=== PATIENT | male | born 1945 | race Caucasian/White ===

== ENCOUNTER 2018-11-03 23:18 | Emergency (ER) | payer MEDICARE, OTHER ==
--- NOTE | 2018-11-03 23:28 | ED Physician Documentation ---
Fall - HISTORIAN Historian: patient - HPI Stated Complaint: fall Chief Complaint: Fall Onset: just prior to arrival Where: home Context: slipped (on ice ) Associated Symptoms:: no loss of consciousness Location of Pain/Injury: upper back, hip, other (rib pain ) Injury to Right Extremity: none Injury to Left Extremity: hip, ankle Further Comments: yes (He states he slipped on the ice and he hit his head on the left eyebrow, and his left upper ribs, upper back, left hip and ankle all hurt. He is not sure he can bear weight on his left leg. He denies any decrease in sensation. He has no difficulty breathing. He has no loss of control of bowel or bladder. No LOC. No headache. He has pain upper back with palpation. Ribs hurt with movement) - ROS CONST: no problems NEURO: denies: dizziness, anxiety MS/SKIN/LYMPH: back pain, ankle swelling. denies: weakness, neck pain CVS/RESP: denies: chest pain, shortness of breath GI/: denies: nausea, vomiting - PAST HX Past History: A-Fib, diabetes Type 2 Immunizations: UTD Allergies/Adverse Reactions: Allergies Allergy/AdvReac Type Severity Reaction Status Date / Time No Allergy Information Allergy Unverified 11/03/18 23:56 Available - SOCIAL HX Smoking History: non-smoker Alcohol Use: none Drug Use: none - FAMILY HX Family History: none - REVIEWED ASSESSMENTS Nursing Assessment Reviewed: Yes Vitals Reviewed: Yes Progress - Progress Progress: 0015: discussed results. he states he cannot bear weight on his left leg. Denies any upper leg or lower leg pain but in his hip is the pain. Pulses + he is able to Fully move leg and bend hip with pain but is tolerable. He also states he has no way home. He does not want toradol he wants percocet DG ED Results Lab/Radiology - Radiology Radiology Impressions: Head CT without contrast Clinical history: Fall with head injury. Technique: CT examination of the brain is performed in contiguous axial slices. Findings: 4th ventricle lies in a normal midline position. The ventricles and sulci are prominent consistent with the patient's age. There are postoperative changes with prior frontal craniotomy. Intracranial atherosclerosis is evident. There is no hypodense or hyperdense mass or intracranial hemorrhage. Impression: 1. Postoperative changes. 2. Mild atrophy consistent with the patient's age. 3. Intracranial atherosclerosis. 4. No acute intracranial changes. Electronically signed on Nov 04, 2018 12:46:10 AM TOW TRUCK OPERATOR by: Zaid Ewing Chest and left ribs Clinical history: Fall. Findings: Examination of the chest in AP and left ribs in AP and coned-down views of the lower ribs demonstrates the lungs to be clear. Cardiac silhouette is prominent and the aorta is atherosclerotic. There is minimal apical pleural thickening bilaterally. There is mild deformity left 6th and 7th posterior ribs consistent with old healed fractures. There is no evidence of acute fracture. Impression: 1. Limited exam. 2. No definite acute fracture. Electronically signed on Nov 04, 2018 12:53:29 AM TOW TRUCK OPERATOR by: Zaid Ewing Pelvis and left hip Clinical history: Fall. Pain. Findings: Examination pelvis and AP and left hip in AP and frog-leg lateral views demonstrates degenerative changes with narrowing of the hip joint space bilaterally. There are degenerative changes in visualized lower lumbar vertebrae. There is no evident fracture. Impression: 1. Degenerative changes in the hips. 2. No fracture. Electronically signed on Nov 04, 2018 12:56:54 AM TOW TRUCK OPERATOR by: Zaid Ewing CT of the thoracic spine Clinical history: Fall. Pain. Technique: CT of the thoracic spine is performed in contiguous axial slices with sagittal and coronal reconstructions. Findings: The alignment of the vertebrae is anatomic. Anterior and lateral osteophytes are present at multiple levels. There is no evident fracture. The d iameter of the bony spinal canal is within normal limits. Paravertebral soft tissues are unremarkable Impression: 1. Spondylosis. 2. No fracture. Electronically signed on Nov 04, 2018 12:58:09 AM TOW TRUCK OPERATOR by: Zaid Ewing CT of the cervical spine Clinical history: Fall. Neck pain. Technique: CT of the cervical spine is performed in contiguous axial slices with sagittal and coronal reconstructions. Findings: The alignment of the vertebrae is anatomic. There is narrowing of the disc spaces C5-6 and C6-7 with narrowing of the facet joints throughout the cervical vertebrae. Prevertebral soft tissues are within normal limits. The C1-2 articulation is normal and the base of the odontoid is intact. There is no evident fracture. Carotid arterial calcification is evident. Posterior osteophytes slightly narrow the neural foramina bilaterally at C5-6 and C6-7. Impression: 1. Spondylosis. 2. No fracture. Electronically signed on Nov 04, 2018 1:01:25 AM TOW TRUCK OPERATOR by: Zaid Ewing Three views of the right ankle Clinical history: Fall. Findings: Examination right ankle in AP, lateral and oblique views demonstrates a small ossicle adjacent to the distal fibula. The ankle mortise is anatomic. There is no fracture. Impression: 1. Ossicle adjacent to the distal fibula. 2. No fracture. Electronically signed on Nov 04, 2018 12:58:52 AM TOW TRUCK OPERATOR by: Zaid Martinez Physical Exam - Physical Exam General Appearance: no acute distress, alert Head: non-tender, no swelling, trauma (small abrasion on left eye brow ) Neck: non-tender, painless ROM Eye: NAVJOT Resp/CVS: chest non-tender, breath sounds nml, no resp. distress, heart sounds nml, rib tenderness (left upper ) Abdomen: soft, normal bowel sounds, no distension Neuro: oriented x3, CN's nml as tested, sensation nml, motor nml, mood/affect nml, inset cutter nml, reflexes nml, inset cutter symmetrical Skin: color nml, no rash Back: normal inspection, no CVA tenderness Extremities: atraumatic, pelvis stable, unable to bear weight (pain to palpation left hip - No rotation states pain moves into his hip with flexion ) Joint: joints nml - Walker Coma Score Eyes Open: Spontaneous Speech: Oriented Motor: Obeys Commands Discharge Clincal Impression: Fall Qualifiers: Encounter type: initial encounter Qualified Code(s): W19.XXXA - Unspecified fall, initial encounter Referrals: Primary Doctor,No [Primary Care Provider] - 2 Days Comments: 1. Vicodin take 1 by mouth every 6 hours as needed for pain 2. Baclofen 10 mg take 1 by mouth every 12 hours as needed for pain 3. Rest/Ice 4. Follow up with PCP in 2-4 days 5. Return to ER for any concerns Condition: Stable Disposition: 01 HOME, SELF-CARE Decision to Admit: NO Date of Decison to Admit: 11/04/18 Decision Time: 01:29
--- NOTE | 2018-11-04 01:02 | Diagnostic Imaging Report ---
BRYAN MCCORD [facility] [address] [facility] [address] [address] Report Submission Date: Nov 04, 2018 12:46:10 AM SURVEY CREW CHIEF Patient Study Name: BERNARD LEARY Date: Nov 03, 2018 11:55:07 PM SURVEY CREW CHIEF Modality Type: CT\SR Gender: M Description: CT BRAIN W/O CONTRAST : 47 Institution: [facility] Physician: BRYAN MCCORD Head CT without contrast Clinical history: Fall with head injury. Technique: CT examination of the brain is performed in contiguous axial slices. Findings: 4th ventricle lies in a normal midline position. The ventricles and sulci are prominent consistent with the patient's age. There are postoperative changes with prior frontal craniotomy. Intracranial atherosclerosis is evident. There is no hypodense or hyperdense mass or intracranial hemorrhage. Impression: 1. Postoperative changes. 2. Mild atrophy consistent with the patient's age. 3. Intracranial atherosclerosis. 4. No acute intracranial changes. Electronically signed on Nov 04, 2018 12:46:10 AM SURVEY CREW CHIEF by: Zaid DE LA FUENTE
--- NOTE | 2018-11-04 01:03 | Diagnostic Imaging Report ---
BRYAN MCCORD [facility] [address] [facility] [address] Report Submission Date: Nov 04, 2018 12:53:29 AM PRE ASSEMBLY WIRER Patient Study Name: BERNARD LEARY Date: Nov 04, 2018 12:11:20 AM PRE ASSEMBLY WIRER Modality Type: DX Gender: M Description: RIBS UNILATERAL W/ PA CHEST : 47 Institution: [facility] Physician: BRYAN MCCORD Chest and left ribs Clinical history: Fall. Findings: Examination of the chest in AP and left ribs in AP and coned-down views of the lower ribs demonstrates the lungs to be clear. Cardiac silhouette is prominent and the aorta is atherosclerotic. There is minimal apical pleural thickening bilaterally. There is mild deformity left 6th and 7th posterior ribs consistent with old healed fractures. There is no evidence of acute fracture. Impression: 1. Limited exam. 2. No definite acute fracture. Electronically signed on Nov 04, 2018 12:53:29 AM PRE ASSEMBLY WIRER by: Zaid DE LA FUENTE
--- NOTE | 2018-11-04 01:04 | Diagnostic Imaging Report ---
BRYAN MCCORD [facility] [address] [facility] [address] [place] [address]. [id number] Report Submission Date: Nov 04, 2018 12:58:09 AM NEURO UROLOGIST Patient Study Name: BERNARD LEARY Date: Nov 04, 2018 12:00:18 AM NEURO UROLOGIST Modality Type: CT\SR Gender: M Description: CT T-SPINE W/O CONTRAS : 47 Institution: [facility] Physician: BRYAN MCCORD CT of the thoracic spine Clinical history: Fall. Pain. Technique: CT of the thoracic spine is performed in contiguous axial slices with sagittal and coronal reconstructions. Findings: The alignment of the vertebrae is anatomic. Anterior and lateral osteophytes are present at multiple levels. There is no evident fracture. The diameter of the bony spinal canal is within normal limits. Paravertebral soft tissues are unremarkable Impression: 1. Spondylosis. 2. No fracture. Electronically signed on Nov 04, 2018 12:58:09 AM NEURO UROLOGIST by: Zaid DE LA FUENTE
--- NOTE | 2018-11-04 01:04 | Diagnostic Imaging Report ---
BRYAN MCCORD [facility] [address] [facility] [address] [address] Report Submission Date: Nov 04, 2018 12:56:54 AM MEAT GRADER Patient Study Name: BERNARD LEARY Date: Nov 04, 2018 12:11:20 AM MEAT GRADER Modality Type: DX Gender: M Description: LT HIP 2VIEW COMPLETE : 47 Institution: [facility] Physician: BRYAN MCCORD Pelvis and left hip Clinical history: Fall. Pain. Findings: Examination pelvis and AP and left hip in AP and frog-leg lateral views demonstrates degenerative changes with narrowing of the hip joint space bilaterally. There are degenerative changes in visualized lower lumbar vertebrae. There is no evident fracture. Impression: 1. Degenerative changes in the hips. 2. No fracture. Electronically signed on Nov 04, 2018 12:56:54 AM MEAT GRADER by: Zaid DE LA FUENTE
--- NOTE | 2018-11-04 01:05 | Diagnostic Imaging Report ---
BRYAN MCCORD [facility] [address] [facility] [address] [place] [address]. [address] Report Submission Date: Nov 04, 2018 1:01:25 AM FUR REPAIR INSPECTOR Patient Study Name: BERNARD LEARY Date: Nov 03, 2018 11:57:18 PM FUR REPAIR INSPECTOR Modality Type: CT\SR Gender: M Description: CT C-SPINE W/O CONTRAS : 47 Institution: [facility] Physician: BRYAN MCCORD CT of the cervical spine Clinical history: Fall. Neck pain. Technique: CT of the cervical spine is performed in contiguous axial slices with sagittal and coronal reconstructions. Findings: The alignment of the vertebrae is anatomic. There is narrowing of the disc spaces C5-6 and C6-7 with narrowing of the facet joints throughout the cervical vertebrae. Prevertebral soft tissues are within normal limits. The C1-2 articulation is normal and the base of the odontoid is intact. There is no evident fracture. Carotid arterial calcification is evident. Posterior osteophytes slightly narrow the neural foramina bilaterally at C5-6 and C6-7. Impression: 1. Spondylosis. 2. No fracture. Electronically signed on Nov 04, 2018 1:01:25 AM FUR REPAIR INSPECTOR by: Zaid DE LA FUENTE
[2018-11-04] MEDS ORDERED: KETOROLAC TROMETHAMINE 60 MG/2 ML VIAL IM ONE (01:06)
--- NOTE | 2018-11-04 01:06 | Diagnostic Imaging Report ---
BRYAN MCCORD [facility] [address] [facility].[address] [address] Report Submission Date: Nov 04, 2018 12:58:52 AM TRANSFORMER INSPECTOR Patient Study Name: BERNARD LEARY Date: Nov 04, 2018 12:11:20 AM TRANSFORMER INSPECTOR Modality Type: DX Gender: M Description: ANKLE 3 VIEWS OR MORE : 47 Institution: [facility] Physician: BRYAN MCCORD Three views of the right ankle Clinical history: Fall. Findings: Examination right ankle in AP, lateral and oblique views demonstrates a small ossicle adjacent to the distal fibula. The ankle mortise is anatomic. There is no fracture. Impression: 1. Ossicle adjacent to the distal fibula. 2. No fracture. Electronically signed on Nov 04, 2018 12:58:52 AM TRANSFORMER INSPECTOR by: Zaid DE LA FUENTE
[2018-11-04] MEDS ORDERED: oxyCODONE/ACETAMINOPHEN 5/325 TABLET PO ONE (01:10)
[2018-11-04 03:25] VITALS: BP 142/64
== END 2018-11-04 02:50 | disposition home or self-care (01) ==
LOC: ED 23:18
DX: M25.552 Pain in left hip (principal); M25.572 Pain in left ankle and joints of left foot; R07.81 Pleurodynia; M54.6 Pain in thoracic spine; W00.0XXA Fall on same level due to ice and snow, initial encounter; Y93.9 Activity, unspecified; Y92.009 Unspecified place in unspecified non-institutional (private) residence as the place of occurrence of the external cause
CPT/HCPCS: 70450; 71101; 72125; 72128; 73502; 73610; 99284; 99285; A9270